=== PATIENT | female | born 1940 | race Hispanic/Latino ===

== ENCOUNTER → 2023-08-21 | Outpatient (CLI) | payer OTHER ==
[2023-08-21 22:01] VITALS: PULSE 57; RESP 12
[2023-08-21 22:30] VITALS: PULSE 55; RESP 12
[2023-08-21 23:03] VITALS: PULSE 51; RESP 12
[2023-08-21 23:30] VITALS: PULSE 14; RESP 14
[2023-08-22] VITALS (11 sets, daily range): PULSE 50–58; RESP 10–16
== END | disposition home or self-care (01) ==
LOC: EDBD → SLP 19:46
PROVIDERS: ATTEND Internal Medicine Cardiovascular Disease
DX: G47.33 Obstructive sleep apnea (adult) (pediatric) (principal); I10 Essential (primary) hypertension; M25.50 Pain in unspecified joint
CPT/HCPCS: 95810